=== PATIENT | female | born 1955 | race Caucasian/White ===

== ENCOUNTER → 2018-08-12 | Outpatient (CLI) | payer OTHER ==
[~2018-08-12] MED LIST: ALPR-1 PO; AMI25 PO; AMIT-106 PO; LINA145C PO; LOR5/325 PO; METO5TAB75 PO; OXYC-865 PO; PANT40TA65 PO; PROM-110 PO; SULF-198 PO; SUMA5SPR6 ENA; TAMS0.4C25 PO; VAL500 PO; ZOLM5 PO
[2018-08-12 10:27] LABS: PLATELET COUNT, AUTOMATED 331 K/uL (150-450)
[2018-08-12 10:34] LABS: LDL CHOLESTEROL 136 mg/dl
== END ==
LOC: LAB 10:00
PROVIDERS: ATTEND Internal Medicine
DX: Z00.00 Encounter for general adult medical examination without abnormal findings (principal)
CPT/HCPCS: 36415; 82040; 82247; 82310; 82374; 82435; 82465; 82565; 82947; 83718; 84075; 84132; 84155; 84295; 84439; 84443; 84450; 84460; 84478; 84520; 85025; 86803

== ENCOUNTER → 2019-02-17 | Outpatient (CLI) | payer OTHER | LOC: LAB 16:05 | PROVIDERS: ATTEND Internal Medicine Gastroenterology | DX: B18.1 Chronic viral hepatitis B without delta-agent (principal) | CPT/HCPCS: 36415; 87517 ==

== ENCOUNTER → 2019-03-24 | Outpatient (CLI) | payer OTHER | LOC: LAB 13:54 | PROVIDERS: ATTEND Internal Medicine Gastroenterology | DX: R76.8 Other specified abnormal immunological findings in serum (principal) | CPT/HCPCS: 36415 ==